=== PATIENT | male | born 1990 | race Caucasian/White ===

== ENCOUNTER 2019-09-20 00:31 | Emergency (ER) | payer SELFPAY ==
[~2019-09-20] VITALS: Ht 175.3 cm; Wt 67.5 kg
--- NOTE | 2019-09-20 00:42 | NUR ---
not in lobby
[2019-09-20 00:53] VITALS: BP 121/71
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
--- NOTE | 2019-09-20 01:23 | NUR ---
PT TO XRAY AT THIS TIME
--- NOTE | 2019-09-20 01:32 | NUR ---
PT BACK FROM XRAY
--- NOTE | 2019-09-20 02:20 | NUR ---
Patient/Caregiver given discharge instructions and they have confirmed that they understand the instructions. Patient ambulatory with steady gait.
== END 2019-09-20 02:21 | disposition home or self-care (01) ==
LOC: ED 02:00
DX: S67.190A Crushing injury of right index finger, initial encounter (principal); X58.XXXA Exposure to other specified factors, initial encounter; Y93.89 Activity, other specified; Y92.410 Unspecified street and highway as the place of occurrence of the external cause; Y99.8 Other external cause status
CPT/HCPCS: 99283